=== PATIENT | male | born 1980 | race African-American/Black ===

== ENCOUNTER 2017-11-16 11:01 | Emergency (ER) | payer OTHER ==
[2017-11-16 11:46] VITALS: BP 133/96
[2017-11-16] MEDS ORDERED: DIPH/PERTUSS(ACELL)/TETANUS VAC/PF 0.5 ML SYR (>=10YO) IM ONE (12:02)
--- NOTE | 2017-11-16 12:07 | ER Document Report ---
ED Wound - General Chief Complaint: Laceration Stated Complaint: FINGER LACERATION Time Seen by Provider: 11/16/17 11:14 Mode of Arrival: Ambulatory Information source: Patient Notes: Patient is a 37-year-old male who presents to the ER today for laceration to his left hand, third finger after accidentally cut it on a metal table in retirement. Patient is not up-to-date on his tetanus. Bleeding is controlled with bandaging at this time. TRAVEL OUTSIDE OF THE [place] IN LAST 30 DAYS: No - Related Data Allergies/Adverse Reactions: No Known Allergies Allergy (Verified 11/16/17 11:46) Past Medical History - General Information source: Patient - Social History Smoking Status: Unknown if Ever Smoked Chew tobacco use (# tins/day): No Frequency of alcohol use: None Drug Abuse: None Family History: CVA, Hyperlipidemia, Malignancy Patient has suicidal ideation: No Patient has homicidal ideation: No Renal/ Medical History: Denies: Hx Peritoneal Dialysis Past Surgical History: Reports: Hx Oral Surgery - wisdom and root canal - Immunizations Immunizations up to date: Yes Hx Diphtheria, Pertussis, Tetanus Vaccination: Yes Review of Systems - Review of Systems Constitutional: No symptoms reported EENT: No symptoms reported Cardiovascular: No symptoms reported Respiratory: No symptoms reported Gastrointestinal: No symptoms reported Genitourinary: No symptoms reported Male Genitourinary: No symptoms reported Musculoskeletal: No symptoms reported Skin: See HPI Hematologic/Lymphatic: No symptoms reported Neurological/Psychological: No symptoms reported Physical Exam - Vital signs Vitals: Temp Pulse Resp BP Pulse Ox 97.7 F 62 16 133/96 H 99 11/16/17 11:14 11/16/17 11:14 11/16/17 11:14 11/16/17 11:14 11/16/17 11:14 - Notes Notes: PHYSICAL EXAMINATION: GENERAL: Well-appearing and in no acute distress. HEAD: Atraumatic, normocephalic. EYES: Pupils equal round and reactive to light, extraocular movements intact, sclera anicteric, conjunctiva are normal. NECK: Normal range of motion, supple without lymphadenopathy LUNGS: CTAB and equal. No wheezes rales or rhonchi. HEART: Regular rate and rhythm without murmurs EXTREMITIES: Normal range of motion, no pitting edema. No cyanosis. NEUROLOGICAL: Cranial nerves grossly intact. Normal sensory/motor exams. PSYCH: Normal mood, normal affect. SKIN: Warm, Dry, normal turgor, v shaped avulsion to left 3rd finger on hand, minimal bleeding, no foreign body, superficial Course - Re-evaluation Re-evalutation: 11/16/17 12:05 Laceration was repaired with Steri-Strips, first cleansed extensively with Shur- Clens and saline. Patient given tetanus booster here. - Vital Signs Vital signs: Temp Pulse Resp BP Pulse Ox 97.7 F 62 16 133/96 H 99 11/16/17 11:14 11/16/17 11:14 11/16/17 11:14 11/16/17 11:14 11/16/17 11:14 Procedures - Laceration/Wound Repair Left Finger 3rd digit Time completed: 13:00 Wound length (cm): 2 Wound's Depth, Shape: Irregular, Flap Laceration pre-procedure: Shur-Clens applied Irrigated w/ Saline (mLs): 30 Wound Repaired With: Steri-strips Post-procedure wound care: Sterile dressing applied Post-procedure NV exam normal: Yes Complications: No Discharge - Discharge Clinical Impression: Need for tetanus booster Laceration of finger Qualifiers: Encounter type: initial encounter Finger: middle finger Damage to nail status: without damage Foreign body presence: without foreign body Laterality: left Qualified Code(s): S61.213A - Laceration without foreign body of left middle finger without damage to nail, initial encounter Condition: Stable Disposition: HOME, SELF-CARE Instructions: Non-Sutured Laceration ([facility]), Prophylactic Antibiotic ([facility]), Tetanus Immunization Given ([facility]) Prescriptions: Cephalexin Monohydrate [Keflex 250 mg Capsule] 250 mg PO BID #10 capsule
== END 2017-11-16 12:34 | disposition home or self-care (01) ==
LOC: ER 11:01
DX: S61.213A Laceration without foreign body of left middle finger without damage to nail, initial encounter (principal); W45.8XXA Other foreign body or object entering through skin, initial encounter; Z23 Encounter for immunization
CPT/HCPCS: 90471; 90715; 99282